=== PATIENT | female | born 1945 | race Caucasian/White ===

== ENCOUNTER 2019-11-29 11:51 | Day surgery (SDC) | payer MEDICARE, BC ==
[2019-11-29] MEDS ORDERED: Xylocaine-Mpf 2% 5 Ml Vial IJ ONE (11:52)
[2019-11-29] MEDS ORDERED: Depo-Medrol 40 MG/ML IM ONE (11:52)
[2019-11-29] MEDS ORDERED: DIPRIVAN 200 MG/20 ML IV ONE (13:07)
[2019-11-29] MEDS ORDERED: Ketamine HCl 50 MG/ML ONE (13:07)
[2019-11-29] MEDS ORDERED: Lactated Ringers 1,000 ML IV ONE (14:04)
--- NOTE | 2019-11-29 14:19 | XRAY ---
Indication: Right L3-S1 MBB. Intraoperative fluoroscopy was provided for 12 seconds. Single digital spot image submitted for interpretation demonstrates posterior needle tips projecting over the expected course of the right L3-S1 nerve roots. Correlate with intraoperative findings/report. Incidental L4-S1 intervertebral spacers
--- NOTE | 2019-11-29 16:53 | XRAY ---
12 seconds fluoroscopy time in surgery for right L3-S1 MBB.
== END 2019-11-29 13:07 | disposition home or self-care (01) ==
LOC: SDC-PAIN 11:51
PROVIDERS: ATTEND Psychiatry & Neurology Pain Medicine
DX: M47.816 Spondylosis without myelopathy or radiculopathy, lumbar region (principal); M47.817 Spondylosis without myelopathy or radiculopathy, lumbosacral region; I10 Essential (primary) hypertension; J44.9 Chronic obstructive pulmonary disease, unspecified; F41.8 Other specified anxiety disorders; Z79.01 Long term (current) use of anticoagulants; Z79.899 Other long term (current) drug therapy
CPT/HCPCS: 64493; 64494; 64495; 72020; 77002; J1030; J2704

== ENCOUNTER 2020-04-24 11:27 | Day surgery (SDC) | payer MEDICARE, BC ==
[2020-04-24] MEDS ORDERED: Depo-Medrol 40 MG/ML IM ONE (11:28)
[2020-04-24] MEDS ORDERED: Marcaine 0.5% SDV 10 ML IJ ONE (11:28)
[2020-04-24] MEDS ORDERED: DIPRIVAN 200 MG/20 ML IV ONE (12:59)
[2020-04-24] MEDS ORDERED: Ketamine HCl 50 MG/ML ONE (12:59)
--- NOTE | 2020-04-24 14:17 | XRAY ---
Indication: Right L3-S1 MBB. Intraoperative fluoroscopy was provided for 10 seconds. Single digital spot image submitted for interpretation demonstrates posterior needle tips projecting over the expected course of the right L3-S1 nerve roots. Correlate with intraoperative findings/report. Incidental L4-S1 intervertebral cages.
--- NOTE | 2020-04-24 14:21 | XRAY ---
10 seconds fluoroscopy time in surgery for right L3-S1 MBB.
[2020-04-24] MEDS ORDERED: Lactated Ringers 1,000 ML IV ONE (15:50)
== END 2020-04-24 13:30 | disposition home or self-care (01) ==
LOC: SDC-PAIN 11:27
PROVIDERS: ATTEND Psychiatry & Neurology Pain Medicine
DX: M47.816 Spondylosis without myelopathy or radiculopathy, lumbar region (principal); I10 Essential (primary) hypertension; J44.9 Chronic obstructive pulmonary disease, unspecified; Z79.899 Other long term (current) drug therapy
CPT/HCPCS: 64493; 64494; 72020; 77002; J1030; J2704

== ENCOUNTER 2020-05-15 11:04 | Day surgery (SDC) | payer MEDICARE, BC ==
[2020-05-15] MEDS ORDERED: BUPIVACAINE 0.5% VIAL IJ ONE (11:05)
[2020-05-15] MEDS ORDERED: Depo-Medrol 40 MG/ML IM ONE (11:05)
[2020-05-15] MEDS ORDERED: Ketamine HCl 50 MG/ML ONE (12:31)
[2020-05-15] MEDS ORDERED: DIPRIVAN 200 MG/20 ML IV ONE (12:31)
[2020-05-15] MEDS ORDERED: Xylocaine-Mpf 2% 5 Ml Vial ONE (12:33)
[2020-05-15] MEDS ORDERED: Lactated Ringers 1,000 ML IV ONE (14:40)
--- NOTE | 2020-05-15 16:40 | XRAY ---
Indication: Right SI joint injection. Intraoperative fluoroscopy was provided for 6 seconds. 2 digital spot images submitted for interpretation demonstrates posterior needle tip projecting over the inferior right SI joint. Correlate with intraoperative findings/report. Incidental lower lumbar and right SI joint fusion hardware.
--- NOTE | 2020-05-15 17:11 | XRAY ---
6 seconds of fluoroscopy was used in surgery for a right SI joint injection.
== END 2020-05-15 12:55 | disposition home or self-care (01) ==
LOC: SDC-PAIN 11:04
PROVIDERS: ATTEND Psychiatry & Neurology Pain Medicine
DX: M46.1 Sacroiliitis, not elsewhere classified (principal); I10 Essential (primary) hypertension; J44.9 Chronic obstructive pulmonary disease, unspecified; Z79.01 Long term (current) use of anticoagulants; Z79.899 Other long term (current) drug therapy
CPT/HCPCS: 27096; 72020; 77002; 99100; J1030; J2704; G0260